=== PATIENT | female | born 2000 | race Caucasian/White ===

== ENCOUNTER 2018-09-05 18:50 | Emergency (ER) | payer OTHER ==
[~2018-09-05] VITALS: Ht 165.1 cm; Wt 61.2 kg
[2018-09-05 19:05] VITALS: BP 115/75
--- NOTE | 2018-09-05 19:05 | NUR ---
ED Nurse Note: Pt slipped and fell at work on L sided hip on 09/01/18, now complaining of pain.
[2018-09-05] MEDS ORDERED: Ketorolac 30mg Inj IM ONE (19:30)
--- NOTE | 2018-09-05 19:53 | NUR ---
ED Nurse Note: URINE SENT TO LAB
--- NOTE | 2018-09-05 20:31 | Emergency Room Report ---
History of Present Illness General Chief Complaint: Multiple Trauma/Fall Source: Patient (Nelson Waters) Present Illness HPI 17-year-old female patient presents the ER complaining of left hip pain for the past few days. Reports that she was at work when she was caring a dress and she tripped over the dress and landed on her left hip. Denies hitting her head or loss consciousness. Reports that she did not have a FOOSH injury bilaterally , denies wrist or hand pain. Reports pain with ambulation. 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 Reports returned to work and had states is taking over-the- counter NSAIDs with mild relief of symptoms. Denies bowel or bladder incontinence. (Nelson Waters) Allergies: Coded Allergies: No Known Allergies (Unverified , 09/05/18) Patient History Past Medical History: see triage record Last Menstrual Period: 08/18/2018 Now: No Reviewed Nursing Documentation: PMH: Agreed; PSxH: Agreed (Nelson Waters) Nursing Documentation-PMH Past Medical History: No Stated History (Nelson Waters) Review of Systems All Other Systems: negative except mentioned in HPI (Nelson Watres) Physical Exam Vital Signs Date Time Temp Pulse Resp B/P (MAP) Pulse Ox O2 Delivery O2 Flow Rate FiO2 09/05/18 18:58 98.6 98 20 115/75 95 Room Air Sp02 EP Interpretation: reviewed, normal General Appearance: well appearing, no apparent distress, alert, GCS 15, non- toxic Head: normocephalic, atraumatic Eyes: bilateral eye normal inspection, bilateral eye PERRL ENT: hearing grossly normal, normal pharynx, no angioedema, normal voice, uvula midline, moist mucus membranes Neck: full range of motion Respiratory: lungs clear, normal breath sounds, no rhonchi, no respiratory distress, no accessory muscle use, no wheezing, speaking full sentences Cardiovascular #1: regular rate, rhythm, no edema Cardiovascular #2: 2+ dorsalis pedis (R), 2+ dorsalis pedis (L) Musculoskeletal: back normal, digits/nails normal, gait/station normal, normal range of motion, no calf tenderness, pelvis stable, other - No leg length discrepancy, no bruising, no erythema, no deformity, tender - Left lateral proximal femur near hip Psychiatric: mood/affect normal Skin: no rash (Nelson Waters) Medical Decision Making PA Attestation Dr. Trejo is my supervising Physician whom patient management has been discussed with. (Nelson Waters) Diagnostic Impression: Primary Impression: Injury, hip and thigh ER Course Pt. presents to the ED c/o left hip pain. Ddx considered but are not limited to fracture, sprain, strain, contusion, dislocation. No erythema, no warmth to touch, no fever, nontoxic appearing, low suspicion for septic joint. Soft compartments, no pulselessness, no pallor, no paresthesias, low suspicion for compartment syndrome at this time. Vital signs: are WNL, pt. is afebrile Ordered X-ray and pain medication. ER COURSE Provided with pain medication. Urine negative An X-ray of the left hip shows no fracture per the preliminary reading. Discuss results with the patient. Provided patient with copy of results. Instructed patient to followup with PCP and discuss results of report with patient, discuss need for further treatment and referral. Patient instructed on RICE method: rest, ice, compression, elevation. Patient instructed on rest, ice and heat. Patient instructed to be WBAT Workmen's Compensation paperwork completed. Contact information for orthopedic urgent care provided, follow-up with urgent care if unable to followup with primary care provider and get referral to learning disabilities specialist. Followup with primary care provider. Discuss referral to ortho/pain management/ PT as needed. Discuss further imaging with MRI/CT as needed. DISCHARGE: At this time pt. is stable for d/c to home. Patient is resting comfortably, in no acute distress, nontoxic appearing, talking without difficulty. Will provide printed patient care instructions, and any necessary prescriptions. Patient instructed to follow with primary care provider in 3 - 5 days and to request further follow-up as needed. Care plan and follow up instructions have been discussed with the patient prior to discharge. Take medications as directed. Patient questions asked and answered. Patient reports understanding and agreement to treatment plan. ER precautions given, patient instructed to return to ER immediately for any new or worsening of symptoms. - Please note that this Emergency Department Report was dictated using [employer] technology software, occasionally this can lead to erroneous entry secondary to interpretation by the dictation equipment. Labs Test 09/05/18 19:47 Urine HCG, Qualitative Negative (NEGATIVE) (Nelson Waters) Other X-Ray Diagnostic Results Other X-Ray Diagnostic Results : X-Ray ordered: Left hip # of Views/Limited Vs Complete: 2 View Indication: Pain EP Interpretation: Yes PA Xray: Interpretation reviewed, by supervising MD, and agrees with findings. Interpretation: no dislocation, no soft tissue swelling, no fractures Impression: No acute disease PA Scribe Text Arnaldo Waters PA-C (Nelson Waters) Other X-Ray Diagnostic Results : Electronically Signed by: Amber Rm documentation of Xray reviewed by me and is accurate, Sonny Trejo MD (Sonny Trejo MD) Last Vital Signs Date Time Temp Pulse Resp B/P (MAP) Pulse Ox O2 Delivery O2 Flow Rate FiO2 09/05/18 19:05 98 20 Room Air 09/05/18 19:05 98.6 115/75 95 Status: improved (Nelson Waters) Disposition: HOME, SELF-CARE Condition: Stable Scripts Lidocaine (Lidocaine) 1 Each Adh..patch 5 % TP DAILY for 7 Days, #7 PATCH Prov: Nelson Waters 09/05/18 Ibuprofen* (MOTRIN*) 600 Mg Tablet 600 MG ORAL Q8H PRN for For Pain, #30 TAB 0 Refills Prov: Nelson Waters 09/05/18 Referrals: NOT CHOSEN IPA/,REFERRING (PCP) Additional Instructions: Follow-up with Workmen's Compensation physician. Patient instructed to follow up with primary care provider and discuss further referral to orthopedics/physical therapy/pain management as needed. If unable to followup with PCP, followup with orthopedic urgent care in 5-7 days , call to schedule appointment. Patient instructed on RICE method: rest, ice, compression, elevation. Patient instructed to WBAT. Take medications as directed. Patient questions asked and answered. ER precautions given, patient instructed to return to ER immediately for any new or worsening of symptoms. [facility] [address] [facility] [address] [facility], [address] [email or web address] Nelson Waters Sep 05, 2018 20:31 Sonny Trejo MD Sep 06, 2018 02:12
[2018-09-05 21:34] VITALS: BP 121/74
[2018-09-05] MEDS ORDERED: IBUPROFEN600 MG ORAL (21:35)
[2018-09-05] MEDS ORDERED: LIDOCAINE700 M1 TP (21:35)
--- NOTE | 2018-09-05 21:35 | Diagnostic Imaging Report ---
EXAM: XR Left Hip With Pelvis When Performed, 1 View CLINICAL HISTORY: PAIN TECHNIQUE: Frontal view of the left hip, with pelvis when performed. COMPARISON: No relevant prior studies available. FINDINGS: Bones/joints: Unremarkable. No acute fracture. No dislocation. Soft tissues: Unremarkable. IMPRESSION: Normal left hip x-ray.
--- NOTE | 2018-09-05 21:42 | NUR ---
ER DISCHARGE NOTE: Patient is cleared to be discharged per ERMD, pt is aox4, on room air, with stable vital signs. pt was given dc and prescription instructions, pt was able to verbalize understanding, pt id band REMOVED . pt is able to ambulate with steady gait. pt took all belongings.
[2018-09-05 21:43] VITALS: BP 121/74
== END 2018-09-05 21:42 | disposition home or self-care (01) ==
LOC: EMR 19:49
DX: M25.552 Pain in left hip (principal)
CPT/HCPCS: 73502; 81025; 96372; 99283; J1885